=== PATIENT | female | born 1980 | race Caucasian/White ===

== ENCOUNTER 2017-06-18 15:54 | Emergency (ER) | payer BC ==
[2017-06-18 16:21] VITALS: BP 114/60
--- NOTE | 2017-06-18 16:29 | UC ---
Lower Extremity/Ankle HPI - HPI Summary HPI Summary: stubbed her toe on a bar belle about 10 days ago continued pain in 1st mtp joint , hurts to WB - History of Current Complaint Chief Complaint: UCLowerExtremity Stated Complaint: FOOT PAIN Time Seen by Provider: 06/18/17 16:17 Hx Obtained From: Patient Hx Last Menstrual Period: iud ?: No Onset/Duration: Sudden Onset, Lasting Days - 10, Still Present Severity Initially: Moderate Severity Currently: Moderate Pain Intensity: 6 Pain Scale Used: 0-10 Numeric Aggravating Factor(s): Standing, Ambulation Alleviating Factor(s): Rest, Elevation Able to Bear Weight: Yes - with pain - Allergies/Home Medications Allergies/Adverse Reactions: Allergies Allergy/AdvReac Type Severity Reaction Status Date / Time No Known Allergies Allergy Verified 03/14/13 12:30 PMH/Surg Hx/FS Hx/Imm Hx Previously Healthy: Yes - Surgical History Surgical History: Yes Surgery Procedure, Year, and Place: - Family History Known Family History: Positive: None - Social History Occupation: Works From/At Home Lives: With Family Alcohol Use: Occasionally Substance Use Type: None Smoking Status (MU): Never Smoked Tobacco - Immunization History Most Recent Tetanus Shot: she is unsure if she's up to date Review of Systems Constitutional: Negative Skin: Negative Eyes: Negative ENT: Negative Respiratory: Negative Cardiovascular: Negative Gastrointestinal: Negative Genitourinary: Negative Motor: Negative Neurovascular: Negative Musculoskeletal: Arthralgia - right 1st metatarsal Neurological: Negative Psychological: Negative Is Patient Immunocompromised?: No All Other Systems Reviewed And Are Negative: Yes Physical Exam Triage Information Reviewed: Yes Appearance: Well-Appearing, No Pain Distress, Well-Nourished Vital Signs: Initial Vital Signs Temp 100 F 06/18/17 16:19 Pulse 78 06/18/17 16:19 Resp 18 06/18/17 16:19 BP 114/60 06/18/17 16:19 Pulse Ox 100 06/18/17 16:19 Vital Signs Reviewed: Yes Eye Exam: Normal Eyes: Positive: Conjunctiva Clear ENT Exam: Normal ENT: Positive: Normal ENT inspection, Hearing grossly normal. Negative: Nasal congestion, Nasal drainage, Trismus, Muffled/hoarse voice Dental Exam: Normal Neck exam: Normal Neck: Positive: Supple, Nontender Respiratory Exam: Normal Respiratory: Positive: Chest non-tender, No respiratory distress, No accessory muscle use Cardiovascular Exam: Normal Cardiovascular: Positive: RRR, Brisk Capillary Refill Musculoskeletal Exam: Normal Musculoskeletal: Positive: Strength Intact, ROM Intact, No Edema Neurological Exam: Normal Neurological: Positive: Alert, Muscle Tone Normal Psychological Exam: Normal Skin Exam: Normal Diagnostics - Radiology No standard instances Xray Interpretation: No Acute Changes Radiology Interpretation Completed By: Radiologist Lower Extremity Course/Dx - Course Course Of Treatment: cam boot rice ibuprofen follow with pcp prn - Differential Dx/Diagnosis Provider Diagnoses: Contusion left foot Discharge - Discharge Plan Condition: Stable Disposition: HOME Patient Education Materials: Ibuprofen (By mouth), Foot Contusion (ED), RICE Therapy (ED) Referrals: Wood Galicia MD [Medical Doctor] - If Needed
--- NOTE | 2017-06-18 17:00 | RAD ---
HISTORY: Right foot injury COMPARISONS: None VIEWS: 3, Frontal, lateral, and oblique views of the right foot FINDINGS: BONE DENSITY: Normal. BONES: There is no displaced fracture. JOINTS: There is no arthropathy. ALIGNMENT: There is no dislocation. SOFT TISSUES: Unremarkable. OTHER FINDINGS: None. IMPRESSION: NO ACUTE OSSEOUS INJURY. IF SYMPTOMS PERSIST, RECOMMEND REPEAT IMAGING.
== END 2017-06-18 17:33 | disposition home or self-care (01) ==
LOC: UCEAST 15:54
DX: S90.32XA Contusion of left foot, initial encounter (principal); W23.0XXA Caught, crushed, jammed, or pinched between moving objects, initial encounter; Y93.9 Activity, unspecified; Y92.9 Unspecified place or not applicable
CPT/HCPCS: 99211; G0463

== ENCOUNTER 2018-08-15 05:27 | Day surgery (SDC) | payer BC ==
--- NOTE | 2018-07-23 10:15 | HP ---
PREOPERATIVE HISTORY AND PHYSICAL: DATE OF ADMISSION/SURGERY: 08/15/18 DATE OF OFFICE VISIT: 07/20/18 ATTENDING SURGEON: Dr. Barron Delacruz.* (DICTATED BY BHAVIN WADE) PROCEDURE: Right hip arthroscopic labral repair and osteoplasty. CHIEF COMPLAINT: Right hip. HISTORY OF PRESENT ILLNESS: Lenora is a 38-year-old female, who presents to the clinic for right hip pain due to JENNIFER and a labral tear. She has failed conservative measures to include a right hip intraarticular injection which did help decrease the pain, but it started to wear off. She has, therefore, agreed to undergo a right hip arthroscopic labral repair and osteoplasty with Dr. Delacruz on 08/15/18. PAST MEDICAL HISTORY: Depression, anxiety. PAST SURGICAL HISTORY: . The patient denies prior complications with anesthesia. MEDICATIONS: Ibuprofen 200 mg by mouth as needed. ALLERGIES: No known drug allergies. FAMILY HISTORY: Positive for diabetes and heart disease. SOCIAL HISTORY: She lives with her kids. She is a web development consultant. She denies tobacco or alcohol use. She is right-hand dominant. REVIEW OF SYSTEMS: A 14-point review of systems was reviewed with the patient. Positive for current complaint, otherwise negative. Denies fever, chills, chest pain, shortness of breath, history of bleeding disorder, history of DVT or PE. PHYSICAL EXAMINATION GENERAL: A 38-year-old well-developed, well-nourished female, in no acute distress. Alert and oriented x3. Appropriate mood and affect. Appropriate balance and coordination of the lower extremities. VITAL SIGNS: Height 68, weight 140, pulse 72, blood pressure 98/68, temperature 98.0, BMI 21.3. HEENT: Normocephalic, atraumatic. PERRLA. Throat clear. NECK: Supple. PULMONARY: Lungs are clear to auscultation bilaterally. No wheezing, rhonchi, or rales. CARDIO: Regular rate and rhythm. S1, S2. No murmurs, gallops, or rubs. No edema. ABDOMEN: Positive bowel sounds. Soft, nontender. NEURO: Alert and oriented x3. Cranial nerves grossly intact. MUSCULOSKELETAL: Right lower extremity: Skin is intact. No warmth or erythema. Nontender to palpation. Tender over the SI joint. Flexion to 130 degrees of pain. Positive FADIR, positive JOSEMANUEL. Internal rotation to 25, external rotation to 35. No pain with log roll. Pain with passive abduction. + 5/5 strength to ankle dorsiflexion and plantar flexion. +2 PT pulse. Sensation intact to light touch distally. DIAGNOSTIC STUDIES: MRI of the right hip revealed a labral tear that is not displaced, a pincer abnormality, but no cam impingement is obvious in a small defect where the pincer is digging into her hip. 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 PLAN: The patient is scheduled to undergo a right hip arthroscopic labral repair and osteoplasty with Dr. Delacruz on 08/15/18 since she has failed conservative measures. Percocet will be used for postop pain management and naproxen for 30 days to prevent heterotopic ossification. She will follow up 10 to 14 days postop for followup and suture removal. She will be 50% weightbearing for the first 2 weeks postop and to start therapy the day after surgery. She was given a script and protocol today in clinic. BHAVIN WADE [id number]/[facility] #: [id number] CRESCENCIO
[2018-08-15] MEDS ORDERED: Lactated Ringers 1000 ML Bag* 1,000 ML IV SCH (06:00)
[2018-08-15] MEDS ORDERED: Famotidine IV* 10 MG/ML 2 ML (20 mg) IV ONE (06:00)
[2018-08-15] MEDS ORDERED: Buffered Lidocaine 0.9% SYRIN* 5 ML/SYR SYRINGE INTRADERM ONE (06:00)
[2018-08-15] MEDS ORDERED: ceFAZolin 2 GM PREMIX in ORs 2 GM/50 ML BAG IVPB ONE (06:30)
[2018-08-15] MEDS ORDERED: Famotidine IV* 10 MG/ML 2 ML (20 mg) ONE (06:30)
[2018-08-15] MEDS ORDERED: Ketorolac INJ* 30 MG/ML 1 ML VIAL ONE ×2 (06:58→08:10)
[2018-08-15] MEDS ORDERED: Ropivacaine* 2 MG/ML 20 ML VIAL (0.2%) ONE (06:59)
[2018-08-15] MEDS ORDERED: fentaNYL* 50 MCG/ML 2 ML VIAL (100 MCG VIAL) ONE (07:29)
[2018-08-15] MEDS ORDERED: Midazolam* 1 MG/ML 5 ML VIAL (5 MG) ONE (07:29)
[2018-08-15] MEDS ORDERED: Rocuronium* 10 MG/ML VIAL ONE (07:30)
[2018-08-15] MEDS ORDERED: Succinylcholine* 20 MG/ML 10 ML VIAL ONE (08:10)
[2018-08-15] MEDS ORDERED: Lidocaine 2% PF * 5 ML VIAL ONE (08:10)
[2018-08-15] MEDS ORDERED: Ondansetron INJ* 2 MG/ML VIAL ONE (08:10)
[2018-08-15] MEDS ORDERED: Dexamethasone IV* 4 MG/ML 1 ML (4 MG) ONE (08:10)
[2018-08-15] MEDS ORDERED: Propofol* 10 MG/ML 20 ML BTL ONE (08:10)
[2018-08-15] MEDS ORDERED: DiMENhydriNATE IV* 50 MG/ML VIAL ONE (08:10)
[2018-08-15] MEDS ORDERED: DiMENhydriNATE IV* 50 MG/ML VIAL IV PUSH PRN (08:14)
[2018-08-15] MEDS ORDERED: Acetaminophen TAB* 325 MG PO PRN (08:14)
[2018-08-15] MEDS ORDERED: Naloxone* 0.4 MG/ML 1 ML VIAL IV PRN (08:14)
[2018-08-15] MEDS ORDERED: Scopolamine 1.5 mg* PATCH ONE (08:16)
[2018-08-15] MEDS ORDERED: EPHEDrine (Pressors)* 50 MG/ML VIAL ONE (08:25)
[2018-08-15] MEDS ORDERED: HYDROmorphone INJ1* 1 MG/ML SYRINGE ONE ×2 (09:24→10:05)
[2018-08-15] MEDS ORDERED: Acetaminophen TAB* 325 MG ONE (10:05)
[2018-08-15] MEDS ORDERED: oxyCODONE TAB* 5 MG TAB ONE (10:05)
[2018-08-15] MEDS: oxyCODONE TAB* 5 MG TAB PO PRN ×2 (10:05→11:21)
[2018-08-15] MEDS: HYDROmorphone INJ1* 1 MG/ML SYRINGE IV PRN ×4 (10:08→11:29)
[2018-08-15 12:09] VITALS: BP 117/61
--- NOTE | 2018-08-18 22:39 | OP ---
OPERATIVE REPORT: DATE OF OPERATION: 08/15/18 DATE OF : 82 SURGEON: Barron Delacruz MD MARKETING PROPOSAL COORDINATOR: BHAVIN Soto An membership assistant was needed for the entirety of the case to help with positioning, retraction, and utilized throughout all portions of the case. ANESTHESIOLOGIST: Dr. Reynolds. ANESTHESIA: General. 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 OPERATIVE PROCEDURE: Right hip arthroscopy with: 1. Labral repair. 2. Cam osteoplasty. COMPLICATIONS: None. ESTIMATED BLOOD LOSS: Minimal. TRACTION TIME: 1 hour and 10 minutes. IMPLANTS USED: Three Woodruff and Nephew Q-Fix anchors. INDICATIONS: Lenora is a 38-year-old female with persistent hip pain refractory to conservative management including physical therapy, antiinflammatories, and she responded to diagnostic and therapeutic injections. She also has a working diagnosis of possible SI joint pain. She has elected to proceed with surgical treatment. Risks and benefits were discussed at length to include, but not limited to bleeding, infection, damage to nerves, vessels, surrounding structures, wound nonhealing, persistent pain, need for further surgery, scarring, stiffness, incomplete relief of symptoms, the risk of anesthesia, risk of heterotropic ossification, fracture, dislocation, and failure to repair. OPERATIVE FINDINGS: The traction provided good access to the hip without evidence of underlying hyperlaxity. The arthroscopic exam showed labral tearing in the anterior-superior portion of the labrum at 10 o'clock and 2 o'clock positions with unstable flaps, at the labrum itself was a little bit low grade, 0 to 1 changes to the acetabulum and the femoral head with a wave sign at the acetabulum where the labral tear was, and there is a small cam deformity and a rather large crossover sign. DESCRIPTION OF PROCEDURE: The patient was greeted in the preoperative area by the attending surgeon. Correct extremity was marked and the consent was confirmed. The patient was brought back to the operating suite where she was placed in supine position on the operating table. She underwent general anesthesia and endotracheal intubation after which she was appropriately positioned in the Woodruff and Nephew hip traction system. The operative leg was placed in the dynamic Well leg cifuentes and the nonoperative leg was placed in a more rigid leg cifuentes. A well-padded perineal post was placed and traction was then balanced beginning with the nonoperative side first. The operative leg was then placed in neutral adduction with gentle flexion and slight gentle internal rotation and traction. The right hip was then prepped and draped in usual sterile fashion with chlorhexidine soap, scrub and alcohol wipe. After a miniature surgical pause, gross traction was applied to the operative extremity. This was confirmed under fluoroscopic guidance. The hip was prepped with a small prep with ChloraPrep, and under sterile condition, an 18- gauge spinal needle was used to break the acetabular seal. Once this was confirmed and the traction was working to allow for 1.5 cm in space, the traction was then fully released. The needle was removed and the hip was prepped with a final prep with ChloraPrep. After appropriate surgical pause indicating site, side, procedure, administration of antibiotics, the traction was brought back up, this was confirmed on the C-arm, and then the traction time-out was begun. Traction time was 1 hour and 10 minutes. The patient was preserved with blood during the entirety of the case. First, the anterolateral peritrochanteric portal was then accessed using a spinal needle, confirmed under fluoroscopy. The cannula was then introduced atraumatically after an incision was made using an #11 blade. Once the scope was brought into the joint, a mid anterior portal was then made in a similar fashion and the cannula was placed atraumatically. The cannula was switched to the mid anterior portal to make sure that no cannula violated the labrum. There was evidence of a large labral tear in 10 o'clock and 2 o'clock position with the majority of the labrum subluxing into the joint. There was an obvious wave sign. At this point, the morongo blade was used to make a capsulotomy beginning mid anteriorly, connecting laterally, and then switched portals to connect the entire capsulotomy. The pump was set to 40 mmHg to provide stable and consistent pressure throughout the entirety of the case. Attention was then directed to synovectomy. The synovectomy was completed using the full radius shaver. Electrocautery device was used for hemostasis. There was a moderate amount of synovitis present. The acetabular remnant was visualized and the labral tear was then debrided back to level of the AIIS. The labrum was then probed and found to be repairable. It was then carefully released at the insertion site using the morongo blade from the lateral portal, after which a 5.5-mm round bur then used to do rim trimming. The patient had a moderate crossover sign and a pincer deformity, which is majority of her JENNIFER. This was released and confirmed with fluoroscopic visualization to remove crossover sign, which was confirmed with x- ray. This also allowed for a good bony bleeding bed. At this point, the decision was made to repair the labrum. This was a large tear. Beginning through the anterolateral portal, the Q-Fix guide was then placed and a Q-Fix single loaded anchor was then placed under direct arthroscopic visualization to make sure it did not penetrate the acetabulum. The suture was then passed in a simple configuration to help to bring the labrum back. The tissue quality was okay in the very lateral portion, but this did not repair; therefore, a second anchor was placed just anterior to that, passed in a similar fashion. This helped to restore the labrum further. One anchor was placed through the mid anterior portal and this allowed for latter-day of the labrum. This was visualized with a nice visual repair. The final images were obtained. The labrum was found to be secured. The traction was then taken down. This was confirmed both arthroscopically and fluoroscopically. Total time was 1 hour and 10 minutes. At this time, attention was directed to the femoral portion of the case. There was a smaller cam deformity because most of hers was pincer overloaded. The femoral head and neck angle were visualized. The capsulotomy was then T'd to allow for exposure of the cam lesion. Preoperative templating was used as a guide for the osteoplasty. The 5.5-mm bur was then used to do resection of the cam that appeared superiorly to laterally and inferiorly to medially. This was done using a C-arm to make sure there was elimination of much femoral-sided impingement was done. The femoral head and neck angle were normalized. Care was taken to prevent any iatrogenic injury to the vessels. Postresection, dynamic testing was done under direct visualization arthroscopically to make sure the cam lesion was removed and there was no evidence of impingement. This was done by extension with internal, neutral, and external rotation, and then flexion with internal, neutral, and external rotation. Final images were obtained. The wounds were copiously irrigated with sterile saline. Hemostasis was obtained. Fluids were evacuated from the joint. The spinal needle was placed under arthroscopic visualization and injectable Toradol and saline were placed in the joint. The wounds were then copiously irrigated with sterile saline. The portals were closed in layers with 2- 0 Vicryl and 3-0 nylon. The portals were injected with 0.2% bupivacaine. Sterile dressings were applied as well as a Cryo/Cuff and JONATHAN stockings. She was awoken from anesthesia, transferred to PACU in stable condition. POSTOPERATIVE PLAN: She will be 50% weightbearing for 2 weeks. No hip flexion past 90 degrees. She will start physical therapy on postop day 1. She will be on JONATHAN stockings for 2 weeks and discharged on pain medication of Naprosyn 500 mg p.o. b.i.d. to prevent HO. DVT prophylaxis was considered, but deferred due to no previous personal or family history. I will see the patient back in 10 to 14 days with repeat x-rays including a Bolaños lateral of the hip. [id number]/[facility] #: [id number] CRESCENCIO
== END 2018-08-15 13:08 | disposition home or self-care (01) ==
LOC: OR 05:27
PROVIDERS: ATTEND Orthopaedic Surgery
DX: M25.851 Other specified joint disorders, right hip (principal); M46.1 Sacroiliitis, not elsewhere classified; F41.8 Other specified anxiety disorders
CPT/HCPCS: 81025; A9270-GY; J0330; J0690; J1100; J1170; J1240; J1885; J2250; J2405; J2704; J2795; J3010

== ENCOUNTER 2018-09-05 07:39 | Emergency (ER) | payer BC ==
--- NOTE | 2018-09-05 08:28 | ED ---
Abdominal Pain/Female - HPI Summary HPI Summary: pain in the midepigastrium with associated nausea, vomiting times 2 . s/p surgery on labrum of hip several weeks ago, since that time using naprosyn twice daily - History of Current Complaint Chief Complaint: UCAbdominalPain Stated Complaint: ABD PAIN Time Seen by Provider: 09/05/18 08:19 Hx Last Menstrual Period: IUD ?: No Onset/Duration: Lasting Weeks Timing: Constant Severity Initially: Moderate Pain Intensity: 7 Location: Discrete At: LUQ Radiates: Yes Radiates to: Back Alleviating Factor(s): Nothing - Risk Factors Ectopic Risk Factor: Negative Allergies/Adverse Reactions: Allergies Allergy/AdvReac Type Severity Reaction Status Date / Time No Known Allergies Allergy Verified 09/05/18 07:51 Home Medications: Home Medications Naproxen [Naproxen 500 mg tab] 500 mg PO BID PRN 09/05/18 [History Confirmed ] PMH/Surg Hx/FS Hx/Imm Hx Previously Healthy: Yes Endocrine/Hematology History: Reports: Hx Thyroid Disease Denies: Hx Diabetes Cardiovascular History: Denies: Hx Hypertension, Hx Pacemaker/ICD, Other Cardiovascular Problems/ Disorders GI History: Reports: Hx Irritable Bowel Denies: Other GI Disorders History: Denies: Hx Renal Disease Musculoskeletal History: Reports: Other Musculoskeletal History - right hip pain Denies: Hx Scoliosis Sensory History: Reports: Hx Contacts or Glasses - glasses Denies: Hx Hearing Aid Opthamlomology History: Reports: Hx Contacts or Glasses - glasses Psychiatric History: Reports: Hx Anxiety, Hx Depression, Hx Inpatient Treatment Denies: Hx Eating Disorder, Hx Panic Disorder, Hx of Violent Episodes Against Others - Surgical History Surgery Procedure, Year, and Place: , 2009. R hip arthroplasty Hx Anesthesia Reactions: No Infectious Disease History: Yes Infectious Disease History: Denies: Hx Clostridium Difficile, Hx Hepatitis, Hx Human Immunodeficiency Virus (HIV), Hx of Known/Suspected MRSA, Hx Shingles, Hx Tuberculosis, Hx Known/ Suspected VRE, Hx Known/Suspected VRSA, History Other Infectious Disease, Traveled Outside the [place] in Last 30 Days - Family History Known Family History: Positive: None - Social History Alcohol Use: Occasionally Substance Use Type: Reports: None Smoking Status (MU): Never Smoked Tobacco Review of Systems Constitutional: Negative Eyes: Negative ENT: Negative Cardiovascular: Negative Respiratory: Negative Positive: Abdominal Pain Genitourinary: Negative Positive: Arthralgia All Other Systems Reviewed And Are Negative: Yes Physical Exam Triage Information Reviewed: Yes Vital Signs On Initial Exam: Initial Vitals Temp Pulse Resp BP Pulse Ox 37.1 C 90 14 110/76 100 09/05/18 07:44 09/05/18 07:44 09/05/18 07:44 09/05/18 07:44 09/05/18 07:44 Vital Signs Reviewed: Yes Appearance: Positive: Pain Distress Skin: Positive: Warm Head/Face: Positive: Normal Head/Face Inspection Eyes: Positive: Normal ENT: Positive: Normal ENT inspection Neck: Positive: Supple Respiratory/Lung Sounds: Positive: Clear to Auscultation Cardiovascular: Positive: Normal Abdomen Description: Positive: Soft, Other: - tender midepigastrium left upper quadrant, no rebound, no rigidity , bowel sounds present Diagnostics - Vital Signs Vital Signs Temp Pulse Resp BP Pulse Ox 09/05/18 07:44 37.1 C 90 14 110/76 100 - Laboratory Lab Statement: Any lab studies that have been ordered have been reviewed, and results considered in the medical decision making process. Abdominal Pain Fem Course/Dx - Diagnoses Provider Diagnoses: Gastritis and duodenitis Discharge - Sign-Out/Discharge Documenting (check all that apply): Patient Departure All imaging exams completed and their final reports reviewed: No Studies - Discharge Plan Condition: Good Disposition: HOME Prescriptions: Ondansetron ODT TAB* [Zofran 4 MG Odt TAB*] 4 mg PO Q6H PRN #20 tab.odt PRN Reason: Nausea Pantoprazole Sodium [Protonix] 40 mg PO DAILY #30 granp Patient Education Materials: Gastritis (ED) Referrals: Ana Lilia Nelson [employer] [Primary Care Provider] - - Billing Disposition and Condition Condition: GOOD Disposition: Home
[2018-09-05 08:34] VITALS: BP 123/79
[2018-09-05] MEDS ORDERED: Ondansetron ODT TAB* 4 MG SL ONE (08:55)
[2018-09-05 11:14] LABS: ABS Basophils 0 10^3/ul (0-0.2); ABS Eosinophils 0.1 10^3/ul (0-0.6); ABS Lymphocytes 1.2 10^3/ul (1.0-4.8); ABS Monocytes 0.5 10^3/ul (0-0.8); ABS Neutrophils 4.6 10^3/ul (1.5-7.7); ABS Nucleated RBC 0 10^3/ul; Hematocrit 40 % (35-47); Hemoglobin 13.6 g/dl (12.0-16.0); Lymphocyte % 18.8 %; Mean Corpuscular HGB Conc 34 g/dl (31-36); Mean Corpuscular Hemoglobin 31 pg (27-31); Mean Corpuscular Volume 89 fL (80-97); Mean Platelet Volume 6.9 fL (7.4-10.4); Nucleated Red Blood Cells % 0; Platelet Count 320 10^3/ul (150-450); Red Blood Count 4.47 10^6/ul (4.00-5.40); Red Cell Distribution Width 13 % (10.5-15); White Blood Count 6.5 10^3/ul (3.5-10.8)
--- NOTE | 2018-09-06 07:08 | UC ---
- Progress Note Progress Note: September 06, 2018 lab result: CBC: WNL WBC: 6.5 Hgb: 13.6 No change in dx or treatment at this time. Alistair Alvarez MD Course/Dx - Diagnoses Provider Diagnoses: Gastritis and duodenitis Discharge - Sign-Out/Discharge Documenting (check all that apply): Post-Discharge Follow Up All imaging exams completed and their final reports reviewed: No Studies - Discharge Plan Condition: Good Disposition: HOME Prescriptions: Ondansetron ODT TAB* [Zofran 4 MG Odt TAB*] 4 mg PO Q6H PRN #20 tab.odt PRN Reason: Nausea Oxycodone HCl/Acetaminophen [Percocet 5-325 mg Tablet] 1 each PO Q6HR PRN 6 Days #25 tablet MDD 4 PRN Reason: Pain Scale 6-10 Pantoprazole Sodium [Protonix] 40 mg PO DAILY #30 granpkt. Patient Education Materials: Gastritis (ED) Referrals: Ana Lilia Nelson, [employer] [Primary Care Provider] - - Billing Disposition and Condition Condition: GOOD Disposition: Home
== END 2018-09-05 09:58 | disposition home or self-care (01) ==
LOC: UCEAST 07:39
DX: K29.70 Gastritis, unspecified, without bleeding (principal); K29.80 Duodenitis without bleeding; R11.2 Nausea with vomiting, unspecified
CPT/HCPCS: 36415; 82272; 85025; 99212; A9270-GY; G0463